=== PATIENT | female | born 1980 | race Caucasian/White ===

== ENCOUNTER 2018-07-08 12:31 | Emergency (ER) | payer MEDICAID ==
[~2018-07-08] VITALS: Ht 162.6 cm; Wt 63.5 kg
[2018-07-08 12:31] VITALS: BP 146/82
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
--- NOTE | 2018-07-08 13:32 | RAD ---
EXAM: AP, oblique and lateral views of the left foot DATE: 07/08/2018 12:56 PM INDICATION: PATIENT FELL DOWN 3 STAIRS, C/O ONGOING PAIN MID FOOT. COMPARISON: No Prior FINDINGS: No evidence of acute fracture or dislocation. Joint spaces are preserved without significant degenerative/proliferative change. Soft tissue swelling about the fifth MTP joint. IMPRESSION: 1. Soft tissue swelling about the fifth MTP joint. 2. No evidence of acute fracture or dislocation. Electronically signed by: Adithya Pavon MD (07/08/2018 1:28 PM) [facility]
== END 2018-07-08 13:30 | disposition home or self-care (01) ==
LOC: ER 12:31 → EDBD 12:31 → ER 13:30
DX: F41.9 Anxiety disorder, unspecified (principal); M79.672 Pain in left foot; G89.11 Acute pain due to trauma; R45.1 Restlessness and agitation; F91.1 Conduct disorder, childhood-onset type; F10.129 Alcohol abuse with intoxication, unspecified; Y90.9 Presence of alcohol in blood, level not specified; F43.10 Post-traumatic stress disorder, unspecified; W18.39XA Other fall on same level, initial encounter; Y93.89 Activity, other specified; Y92.89 Other specified places as the place of occurrence of the external cause; Y99.8 Other external cause status
CPT/HCPCS: 73630; 99284